=== PATIENT | female | born 1940 | race Caucasian/White ===

== ENCOUNTER 2016-10-18 14:51 | Emergency (ER) | payer MEDICARE, OTHER ==
[~2016-10-18 14:51] MED LIST: ALPR0.25 PO; APIX5TAB PO; ASPI-110 PO; DIGO0.12 PO; IPRAAER INH; LISI-519 PO; METO25TA3 PO; POTA20TA5 PO; ULTR50TA5 PO
[2016-10-18 14:53] VITALS: BP 143/89; PULSE 100; RESP 24; TEMP 98; O2SAT 95
--- NOTE | 2016-10-18 16:36 | PD ---
HPI Chief Complaint: Medical Clearance Stated Complaint: DR SENT/ NGUYEN FLUID IN LUNGS Time Seen by Provider: 16:36 Travel History International Travel<30 days: No Contact w/Intl Traveler<30days: No Known affected area: No History of Present Illness HPI 75 year old female with history of CHF, A. fib, mitral valve regurgitation repaired on August 25 presents to the emergency room for evaluation of intermittent shortness of breath since surgery presents to the ED, sent by Dr. Portillo for thoracentesis. Pt has been off Eliquis for the last week per Dr. 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 Gill) she was advised to go back on it. It was then she was advised to come to the ED to for intervention by Dr. Armas today due to increasing shortness of breath. Bilateral chest US have been ordered per Dr. Granados request. History Social History Alcohol Use: Yes (OCCASIONAL ) Tobacco Use: No Allergies-Medications (Allergen,Severity, Reaction): Coded Allergies: Cipro (Verified Adverse Reaction, Intermediate, 10/18/16) PT UNABLE TO RECALL REACTION TYPE Reported Meds & Prescriptions Reported Meds & Active Scripts Active Combivent Respimat Inh (Ipratropium-Albuterol Inh) 20-100 Detention/Act Aero 1 Puff INH QID Ultram (Tramadol HCl) 50 Mg Tab 50 Mg PO Q8H PRN Metoprolol Tartrate 25 Mg Tab 50 Mg PO BID 30 Days Lisinopril 5 Mg Tab 2.5 Mg PO DAILY 30 Days Digoxin 0.125 Mg Tab 0.125 Mg PO DAILY 30 Days Reported Alprazolam 0.25 Mg Tab 0.25 Mg PO HS PRN Potassium Chloride Microencaps 20 Meq Tab 20 Meq PO BID Eliquis (Apixaban) 5 Mg Tab 5 Mg PO BID Aspirin 81 (Aspirin) 81 Mg Tabdr 81 Mg PO HS Review of Systems Except as stated in HPI: all other systems reviewed are Neg Physical Exam Narrative GENERAL: Well-nourished, well-developed female patient, in no acute distress SKIN: Warm and dry. HEAD: Normocephalic. EYES: No scleral icterus. No injection or drainage. NECK: Supple, trachea midline. No JVD or lymphadenopathy. CARDIOVASCULAR: Tachycardic rate and rhythm without murmurs, gallops, or rubs. RESPIRATORY: Breath sounds equal bilaterally. Diminished bilateral bases No accessory muscle use. GASTROINTESTINAL: Abdomen soft, non-tender, nondistended. MUSCULOSKELETAL: No cyanosis. Trace lower extremity edema. BACK: Nontender without obvious deformity. No CVA tenderness. Data Data Last Documented VS Vital Signs Date Time Temp Pulse Resp B/P Pulse Ox O2 Delivery O2 Flow Rate FiO2 10/18/16 14:53 98.0 100 24 143/89 95 Room Air Orders Us Chest (10/18/16 ) Us Chest (10/18/16 ) Complete Blood Count With Diff (10/18/16 17:10) Coag Profile (10/18/16 17:10) Vital Signs (Adult) Q15MX3,Q8H (10/18/16 19:49) Chest, Single Ap (10/18/16 ) Fluid Culture And Gram Stain (10/18/16 19:49) ^ Other Nursing Orders (10/18/16 19:51) Acetaminophen (Tylenol) (10/18/16 20:15) Labs Laboratory Tests Test 10/18/16 17:20 White Blood Count 5.4 TH/MM3 Red Blood Count 4.25 MIL/MM3 Hemoglobin 12.6 GM/DL Hematocrit 38.3 % Mean Corpuscular Volume 90.0 FL Mean Corpuscular Hemoglobin 29.6 PG Mean Corpuscular Hemoglobin 32.8 % Concent Red Cell Distribution Width 15.7 % Platelet Count 304 TH/MM3 Mean Platelet Volume 7.6 FL Neutrophils (%) (Auto) 51.0 % Lymphocytes (%) (Auto) 33.8 % Monocytes (%) (Auto) 9.2 % Eosinophils (%) (Auto) 5.3 % Basophils (%) (Auto) 0.7 % Neutrophils # (Auto) 2.8 TH/MM3 Lymphocytes # (Auto) 1.8 TH/MM3 Monocytes # (Auto) 0.5 TH/MM3 Eosinophils # (Auto) 0.3 TH/MM3 Basophils # (Auto) 0.0 TH/MM3 CBC Comment DIFF FINAL Differential Comment Prothrombin Time 10.7 SEC Prothromb Time International 1.0 RATIO Ratio Activated Partial 25.4 SEC Thromboplast Time MDM Medical Decision Making Medical Screen Exam Complete: Yes Emergency Medical Condition: Yes Medical Record Reviewed: Yes Differential Diagnosis Pleural effusion versus CHF versus dyspnea versus shortness of breath versus arrhythmia Narrative Course 75-year-old female presents to the emergency department at the 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 Kirkpatrick for bilateral chest ultrasound. This is ordered in the emergency department. Workup is initiated in triage. [address] Kirkpatrick. He is aware the patient is waiting in the emergency department triage. He has requested CBC and coag profile to be sent. These are resulted without acute concern. He will be here approximately 5:30 for the patient's procedure. 190 Dr. Kirkpatrick is at the bedside with patient in B pod for intervention. Diagnosis Primary Impression: Shortness of breath Additional Impression: Pleural effusion, bilateral Referrals: Juventino Granados MD Primary Care Physician Patient Instructions: General Instructions, Pleural Effusion (ED), Thoracentesis (DC) Additional Instructions: Follow-up Dr. tasha berry's post procedure instructions Continue all medications as already prescribed Return immediately to the emergency department with any acute worsening of symptoms Condition: Stable Fernanda Branham Oct 18, 2016 16:36
--- NOTE | 2016-10-18 17:21 | RADRPT ---
EXAM DATE/TIME: 10/18/2016 16:32 [facility] COMPARISON: No previous studies available for comparison. EXTERNAL COMPARISON : [facility], XR Chest PA & LAT, October 04, 2016, [facility], XR CHEST PA & L AT, August 08, 2016, [facility], XR Chest PA & LAT, October 07, 2013. INDICATIONS : Shortness of breath. MEDICAL HISTORY : Hypercholesterolemia. Hypertension. Arthritis. Cardiomyopathy. Chest pain. Bigeminy. Peptic ulcer. GE RD. Anemia. SURGICAL HISTORY : Tonsillectomy. CABG. Hysterectomy. Cardiac cath. Blood transfusions. Deviated septum surgery. ENCOUNTER: Subsequent ACUITY: 1 day PAIN SCORE: 6/10 LOCATION: Right chest. MEASUREMENTS: SKIN TO PARIETAL PLEURA: 2.1 cm SKIN TO MAX SAFE DEPTH: 2.9 cm ESTIMATED FLUID VOLUME: 140.8 cc FLUID COMPOSITION: simple FINDINGS: No marking was performed. CONCLUSION: 1. Estimated right pleural effusion volume is 140 cc. No marking performed. Jerry You MD on October 18, 2016 at 17:19 Board Certified Radiologist. This report was verified electronically.
--- NOTE | 2016-10-18 17:22 | RADRPT ---
EXAM DATE/TIME: 10/18/2016 16:37 [facility] COMPARISON: No previous studies available for comparison. EXTERNAL COMPARISON : [facility], XR CHEST PA & LAT, October 04, 2016, [facility], XR CHEST PA & L AT, August 08, 2016, [facility], XR Chest PA & LAT, October 07, 2013. INDICATIONS : Shortness of breath. MEDICAL HISTORY : Hypercholesterolemia. Hypertension. Arthritis. Cardiomyopathy. Chest pain. Bigeminy. Peptic ulcer. GE RD. Anemia. SURGICAL HISTORY : Tonsillectomy. CABG. Hysterectomy. Cardiac cath. Blood transfusions. Deviated septum surgery. ENCOUNTER: Subsequent ACUITY: 1 day PAIN SCORE: 6/10 LOCATION: Left chest MEASUREMENTS: SKIN TO PARIETAL PLEURA: 1.3 cm SKIN TO MAX SAFE DEPTH: 4.1 cm ESTIMATED FLUID VOLUME: 535.2 cc FLUID COMPOSITION: simple FINDINGS: Pleural effusion as above. A link was placed on the skin surface superficial to the pleural fluid col lection. CONCLUSION: 1. Estimated fluid volume is 535 cc. Marker placed on left chest overlying effusion. Jerry You MD on October 18, 2016 at 17:20 Board Certified Radiologist. This report was verified electronically.
[2016-10-18 17:35] LABS: AUTOMATED NEUTROPHIL # 2.8 TH/MM3 (1.8-7.7); BASOPHIL % 0.7 % (0.0-2.0); EOSINOPHIL # 0.3 TH/MM3 (0-0.4); EOSINOPHIL % 5.3 % (0.0-4.0); HEMATOCRIT 38.3 % (35.0-46.0); HEMO FLAGS DIFF FINAL; LYMPH % 33.8 % (9.0-44.0); LYMPHOCYTE # 1.8 TH/MM3 (1.0-4.8); MEAN CORPUSCULAR HEMOGLOBIN 29.6 PG (27.0-34.0); MEAN CORPUSCULAR HGB CONC 32.8 % (32.0-36.0); MONO % 9.2 % (0.0-8.0); PLATELET COUNT 304 TH/MM3 (150-450); RED BLOOD COUNT 4.25 MIL/MM3 (4.00-5.30); RED CELL DISTRIBUTION WIDTH 15.7 % (11.6-17.2); WHITE BLOOD COUNT 5.4 TH/MM3 (4.0-11.0)
[2016-10-18 17:44] LABS: APTT (PATIENT) 25.4 SEC (24.3-30.1); PROTHROMBIN TIME - PATIENT 10.7 SEC (9.8-11.6)
[2016-10-18] MEDS ORDERED: ACETAMINOPHEN 500 MG CPLT PO ONE (20:15)
--- NOTE | 2016-10-18 20:42 | RADRPT ---
EXAM DATE/TIME: 10/18/2016 20:20 [facility] COMPARISON: CHEST SINGLE AP, October 13, 2016, 6:13. INDICATIONS : Post left thoracentesis. MEDICAL HISTORY : Chronic obstructive pulmonary disease. SURGICAL HISTORY : Mitral valve replacement. ENCOUNTER: Initial ACUITY: 1 day PAIN SCORE: 8/10 LOCATION: Bilateral chest FINDINGS: A single view of the chest demonstrates cardiomegaly. Small right pleural effusion and bibasilar dens ities. Previous median sternotomy. The cardiomediastinal contours are unremarkable. Osseous structur es are intact. CONCLUSION: Bibasilar densities greater on the right. Small right pleural effusion. No pneumothorax on the left s tatus post thoracentesis. Prudencio Andrade MD on October 18, 2016 at 20:39 Board Certified Radiologist. This report was verified electronically.
--- NOTE | 2016-10-18 20:53 | PD ---
Physical Exam Date Seen by Provider: Oct 18, 2016 Time Seen by Provider: 20:51 Data Data Last Documented VS Vital Signs Date Time Temp Pulse Resp B/P Pulse Ox O2 Delivery O2 Flow Rate FiO2 10/18/16 14:53 98.0 100 24 143/89 95 Room Air Orders Us Chest (10/18/16 ) Us Chest (10/18/16 ) Complete Blood Count With Diff (10/18/16 17:10) Coag Profile (10/18/16 17:10) Vital Signs (Adult) Q15MX3,Q8H (10/18/16 19:49) Chest, Single Ap (10/18/16 ) Fluid Culture And Gram Stain (10/18/16 19:49) ^ Other Nursing Orders (10/18/16 19:51) Acetaminophen (Tylenol) (10/18/16 20:15) Labs Laboratory Tests Test 10/18/16 17:20 White Blood Count 5.4 TH/MM3 Red Blood Count 4.25 MIL/MM3 Hemoglobin 12.6 GM/DL Hematocrit 38.3 % Mean Corpuscular Volume 90.0 FL Mean Corpuscular Hemoglobin 29.6 PG Mean Corpuscular Hemoglobin 32.8 % Concent Red Cell Distribution Width 15.7 % Platelet Count 304 TH/MM3 Mean Platelet Volume 7.6 FL Neutrophils (%) (Auto) 51.0 % Lymphocytes (%) (Auto) 33.8 % Monocytes (%) (Auto) 9.2 % Eosinophils (%) (Auto) 5.3 % Basophils (%) (Auto) 0.7 % Neutrophils # (Auto) 2.8 TH/MM3 Lymphocytes # (Auto) 1.8 TH/MM3 Monocytes # (Auto) 0.5 TH/MM3 Eosinophils # (Auto) 0.3 TH/MM3 Basophils # (Auto) 0.0 TH/MM3 CBC Comment DIFF FINAL Differential Comment Prothrombin Time 10.7 SEC Prothromb Time International 1.0 RATIO Ratio Activated Partial 25.4 SEC Thromboplast Time [facility] Medical Record Reviewed: Yes Supervised Visit with ESPERANZA: No Interpretation(s) CBC & BMP Diagram 10/18/16 17:20 Last 24 hours Impressions Chest Ultrasound 10/18/16 0000 Signed Impressions: Service Date/Time: Tuesday, October 18, 2016 16:32 - CONCLUSION: 1. Estimated right pleural effusion volume is 140 cc. No marking performed. Jerry You MD Chest Ultrasound 10/18/16 0000 Signed Impressions: Service Date/Time: Tuesday, October 18, 2016 16:37 - CONCLUSION: 1. Estimated fluid volume is 535 cc. Marker placed on left chest overlying effusion. Jerry You MD Differential Diagnosis . Narrative Course Patient has undergone thoracentesis on the left side by Dr. Kirkpatrick. Post thoracentesis x-ray shows no pneumothorax. The patient is medically stable for discharge. Diagnosis Primary Impression: Shortness of breath Additional Impression: Pleural effusion, bilateral Referrals: Juventino Granados MD Primary Care Physician Patient Instructions: General Instructions, Thoracentesis (DC), Pleural Effusion (ED) Additional Instruction: Follow-up Dr. tasha berry's post procedure instructions Continue all medications as already prescribed Return immediately to the emergency department with any acute worsening of symptoms Med/Other Pt SpecificInfo: No Change to Meds Disposition: 01 DISCHARGE HOME Condition: Stable Jerry Brown Oct 18, 2016 20:53
--- NOTE | 2016-11-12 14:16 | MR ---
cc: FIORELLA GRANADOS DATE: 10/14/2016 PROCEDURE Left thoracentesis. ANESTHESIA 1% Xylocaine. PROCEDURAL PHYSICIAN Dr. Tho Granados PROCEDURE AND FINDINGS The patient's left posterior back was prepped with chlorhexidine solution following which sterile drapes were applied. 1% Xylocaine was then injected into the intercostal space in the posterior axillary line after which a small incision was made with a scalpel blade. Following this is a 14-gauge catheter was inserted in the pleural space. This was connected to a vacuum bottle and over 500 cc of serosanguineous fluid was aspirated. The patient tolerated the procedure well. Fiorella Granados MD JCATA/DAMON /3:58 PM /2:07 PM MTDD
== END 2016-10-18 22:16 | disposition home or self-care (01) ==
LOC: NETRI 14:51 → NEPB 22:16
DX: R06.02 Shortness of breath (principal); J90 Pleural effusion, not elsewhere classified; I50.9 Heart failure, unspecified; I34.0 Nonrheumatic mitral (valve) insufficiency; I48.91 Unspecified atrial fibrillation
CPT/HCPCS: 32554; 71010; 76604; 85025; 85610; 85730; 87070; 87205